=== PATIENT | male | born 1945 | race Caucasian/White ===

== ENCOUNTER 2017-05-02 02:38 | Inpatient (IN) | payer MEDICARE, OTHER ==
[2017-05-01 15:02] LABS: INR 0.98
[2017-05-02] VITALS (12 sets, daily range): BP systolic 122–150; BP diastolic 67–81
[~2017-05-02] VITALS: Ht 190.5 cm; Wt 122.5 kg
[~2017-05-02 02:38] MED LIST: ACE500 PO; ASC500 PO; CALC500T76 PO; CLO75 PO; DESV50TA9 PO; DULO60CA56 PO; ENO40I SQ; ESC10 PO; FEN145 PO; FISH OIL1 CAP PO; GLIM4TAB49 PO; IRON1CAP52 PO; LEVO137T21 PO; LEVO150T72 PO; LISI-357 PO; LOR5 PO; METF-1 PO; METF-415 PO; METO25TA91 PO; METO25TA93 PO; MINE1TAB6 PO; MOM PO; MULT-1335 PO; NIAC500C17 PO; OND8 PO; OXYC-373 PO; OXYC20TA PO; OXYC20TA86 PO; PER PO; PIOG30TA27 PO; PLAVIX; PRO25 PO; RIV10 PO; SAXA5TAB4 PO; SIMV-1 PO; SIMV-44 PO; TRAM100T22 PO; UBID30CA27 PO; ZOLP12.545 PO
[2017-05-02] MEDS ORDERED: THROMBIN TOP SOLN 5000INTLU VL ONE (06:34)
[2017-05-02] MEDS ORDERED: GELATIN SPONGE 12-7MM ONE (06:34)
[2017-05-02] MEDS ORDERED: DEXAMETHASONE SOD 4 MG/ML VIAL ONE (07:55)
[2017-05-02] MEDS ORDERED: ONDANSETRON 4 MG/2 ML VIAL ONE (07:55)
[2017-05-02] MEDS ORDERED: PROPOFOL EMUL(*) 10MG/ML 20 ML 20 ML ONE (07:55)
[2017-05-02] MEDS ORDERED: SUGAMMADEX SOD 200 MG/2 ML SDV ONE (07:55)
[2017-05-02] MEDS ORDERED: ROCURONIUM BROM 10 MG/ML 10 ML ONE (07:55)
[2017-05-02] MEDS ORDERED: fentaNYL CITR 250 MCG/5 ML AMP ONE (07:55)
[2017-05-02] MEDS ORDERED: LIDOCAINE MPF 1% 5 ML VIAL ONE (07:55)
[2017-05-02] MEDS ORDERED: METOPROLOL SUCC XL 25 MG TABCR PO ONE (08:05)
[2017-05-02] MEDS ORDERED: VANCOMYCIN IVPB ONE (09:00)
[2017-05-02] MEDS ORDERED: NS 0.9% IVPB ONE (09:00)
[2017-05-02] MEDS ORDERED: cloNIDine EPIDUR INJ 100MCG/ML 40 MCG, ROPIVACAINE 0.5% 20 ML VIAL 25 ML, EPINEPHrine H... INJ ONE (09:00)
[2017-05-02] MEDS ORDERED: MIDAZOLAM 2 MG/2 ML VIAL ONE (10:11)
[2017-05-02] MEDS ORDERED: NORMOSOL R SOLN(*) 1000 ML BAG 1,000 ML IV PRN (11:40)
[2017-05-02] MEDS ORDERED: MIDAZOLAM 2 MG/2 ML VIAL IVP PRN (11:40)
[2017-05-02] MEDS ORDERED: LIDOCAINE/SOD BICARB 8.4% SYR ID ONE (11:40)
[2017-05-02] MEDS ORDERED: FAMOTIDINE 20 MG TAB PO ONE (11:40)
[2017-05-02] MEDS ORDERED: PROMETHAZINE 25 MG/ML 1 ML AMP ONE (14:13)
[2017-05-02] MEDS ORDERED: PROMETHAZINE 25 MG/ML 1 ML AMP IVP PRN (14:20)
[2017-05-02] MEDS ORDERED: KCL/D5LR 20 MEQ/1000 ML PREMIX 1,000 ML IV PRN (14:20)
[2017-05-02] MEDS ORDERED: ACETAMINOPHEN 500 MG TAB PO PRN (14:20)
[2017-05-02] MEDS ORDERED: NALOXONE HCL 0.4 MG/ML VIAL IVP PRN (14:20)
[2017-05-02] MEDS ORDERED: MORPHINE SULFATE 30 MG PCA IV PRN (14:20)
[2017-05-02] MEDS ORDERED: ONDANSETRON 4 MG/2 ML VIAL IVP PRN (14:20)
[2017-05-02] MEDS ORDERED: FLUSH 10 ML SYR IVP PRN (14:20)
[2017-05-02] MEDS ORDERED: diphenhydrAMINE 25 MG CAP PO PRN (14:20)
[2017-05-02] MEDS ORDERED: MAGNESIUM CITRATE 300 ML BTL PO PRN (14:20)
[2017-05-02] MEDS ORDERED: fentaNYL CITR 100 MCG/2 ML AMP ONE (14:28)
--- NOTE | 2017-05-02 15:06 | OPERATIVE REPORT 1 ---
EVENT DATE: May 02, 2017 SURGEON: John Hernandez MD ANESTHESIOLOGIST: Malcolm Ortiz MD ANESTHESIA: General plus scalene block. PROJECT CREW WORKER: RYAN Toribio PREOPERATIVE DIAGNOSIS Right shoulder degenerative joint disease status post prior labral surgery many years ago. POSTOPERATIVE DIAGNOSES 1. Right shoulder degenerative joint disease status post prior labral surgery many years ago. 2. Posterior retroverted glenoid. 3. Significant osteomalacia. PROCEDURE PERFORMED Right shoulder arthroplasty. ESTIMATED BLOOD LOSS 300 INTRAVENOUS FLUIDS 1500 TOURNIQUET TIME None. SPECIMENS None. COMPLICATIONS None. IMPLANTS USED Global anatomic 16-degree body and stem with 52 x 21 eccentric head and a 48 [place] Peg glenoid. SUMMARY OF PROCEDURE The patient was brought into the operating room and placed on the OR table in the supine position. He was given a scalene block and then a general anesthetic. The right upper extremity was then prepped and draped in the usual sterile fashion with the patient in a semi-beach chair position. A deltopectoral approach was taken and deepened through skin and subcutaneous tissue. The deltopectoral interval was identified, and the cephalic vein was taken laterally along with the deltoid. There were some crossing branches superiorly that were cauterized with unipolar cautery. The conjoined tendon was identified. I then evaluated the subdeltoid plane, freed it up with a blunt retractor, and palpated the rotator cuff, finding it to be intact in a sufficient manner to allow anatomic shoulder arthroplasty instead of a reverse. We then incised the subscapularis, allowing for adequate soft tissue cuff to repair it later. The fluid was clear. We brought a posterior humeral retractor and moved the head forward. It was a little bit tight, but we were able to get adequate visualization. The osteophytes were removed. We then made our initial bone cut in line with the articular margin and then did another slightly deeper cut afterwards once we had a good view of where the rotator cuff insertion was. A protective cap was placed over this, and then we retracted it posteriorly. The capsule was stripped away from the anterior inferior glenoid neck as well as the humeral neck. His glenoid had a great deal of retroversion which made this case quite a bit more challenging. We tried initially to use the standard reamers, but they did not work, so I ended up having to use the cannulated reamer that was 0.75 in diameter with the moises missing, but this was then reamed down, and we used this to correct the version of the glenoid. Once I was in adequate position in this regard, we tested with a 48, and it fit well. We drilled the three peripheral holes, and these were all contained well. The central hole was redrilled because we had changed the shape of it. We then placed Gelfoam sponges with thrombin in all holes while mixing cement. The cement was injected using the injection gun into the three peripheral holes, having cleaned them with CarboJet after removing the thrombin-soaked Gelfoam sponges. We then impacted the [place] Peg glenoid into position, having placed bone into the flutes, and held it in position until full polymerization. Excess cement had been removed. At this point, the direction was redirected to the humeral head. We brought the humeral head forward, taking care not to put any pressure on the cemented glenoid. We started with the 6 reamer and progressed upward, but unfortunately , even at a 16, there was only slight cortical chatter. We then did the Brosteotome and the final trial. We had to split the head into quarters and use bone graft not only along the metaphysis, but also down the canal in order to get adequate fit and tension. Once this was done, we trialed several heads. Because we had changed the version and also reamed a moderate amount, I went with a fairly tall head at 52 x 21. This gave adequate support. We then put a little bit more bone graft in before implanting the final stem and head. Once again, we trialed. He was just a little bit lax posteriorly, and so I elected to have him scar in a little bit before we started range of motion by waiting two weeks with a sling and swathe. The wound was irrigated as it had been during the case. We then used #2 FiberWire for the subscapularis closure in anatomic position, followed by repeat irrigation, and then closure of the subcutaneous tissue with 3-0 Vicryl and 4-0 Monocryl for the skin with Steri- Strips applied. He had been given a local anesthetic in the deep and superficial tissues during closure. He was awakened and transferred to the recovery area in stable condition. MEGAN
[2017-05-02] MEDS ORDERED: DAPA10TA PO (15:54)
--- NOTE | 2017-05-02 15:57 | RADIOLOGY IMAGING REPORT ---
FACILITY: [facility] PATIENT NAME: Nini Lacey : 1945 MR: [id number] V: [id number] EXAM DATE: ORDERING PHYSICIAN: JUNIOR FONSECA TECHNOLOGIST: Location: [facility] [place] Patient: Nini Lacey : 1945 Visit/Account:[id number] Date of Sevice: 05/02/2017 Exam type: SHOULDER 1 VIEW RIGHT History: POST RIGHT SHOULDER ARTHROPLASTY Comparison: None. Findings: Or is a right shoulder arthroplasty that appears in good anatomic alignment on this single AP view IMPRESSION: 1. As above Report Dictated By: Margy Gar MD at 05/02/2017 3:43 PM Report E-Signed By: Margy Gar MD at 05/02/2017 3:53 PM WSN:[email or web address]
[2017-05-02] MEDS ORDERED: MAGNESIUM HYDROXIDE* 30ML UDCP PO PRN (17:30)
[2017-05-02] MEDS ORDERED: BISACODYL 10 MG SUPP PR PRN (17:30)
--- NOTE | 2017-05-02 17:42 | Hospitalist Progress Note ---
Subjective Progress Notes Subjective No cp/sob. 300cc of EBL. 1500cc of crystalloid, and dexamethasone given intra- operatively. Physical Exam Vital Signs Date Time Temp Pulse Resp B/P (MAP) Pulse Ox O2 Delivery O2 Flow Rate FiO2 05/02/17 16:30 98.3 102 16 131/70 (90) 91 Nasal Cannula 3.0 Intake and Output 05/03/17 07:00 Intake Total 2253.7 ml Output Total 700 ml Balance 1553.7 ml Intake Oral 360 ml IV Total 1893.7 ml Output Urine Total 400 ml Estimated Blood Loss 300 ml # Voids 3 General Appearance: Alert, Awake, No Acute Distress Cardiovascular: Regular Rate and Rhythm Respiratory: Clear to Auscultation Extremities: No Edema Assessment and Plan Problems: (1) Status post total shoulder arthroplasty Status: Acute Assessment & Plan: No CV/pulmonary issues. The patient is concerned about constipation with the narcotics, so will start MiraLax, Docusate and prn MOM/ Dulcolax. (2) CAD (coronary artery disease) Status: Chronic Assessment & Plan: Continue Zocor, Tricor and Toprol. Dr. Hernandez would like to restart the Plavix in 48 hours. (3) T2DM (type 2 diabetes mellitus) Status: Chronic Assessment & Plan: He is chronically on Metformin, Amaryl, and Farxiga. He didn't bring Farxiga, so will hold. He will restart Metformin on 05/04. He will be on SSI level 2 with AC HS glucose checks. Continue Amaryl. (4) HTN (hypertension) Status: Chronic Assessment & Plan: Continue Lisinopril and Toprol with parameters. (5) Hypothyroid Status: Chronic Assessment & Plan: Continue chronic levothyroxine. Problem Qualifiers (1) Status post total shoulder arthroplasty: Laterality: right Qualified Codes: Z96.611 - Presence of right artificial shoulder joint ADRIANA MARIE MD May 02, 2017 17:42
[2017-05-02] MEDS: POLYETHYLENE GLYCOL 17 GM PKT PO SCH (18:06)
[2017-05-02] MEDS: DOCUSATE SODIUM 100 MG CAP PO SCH (20:34)
[2017-05-02] MEDS: METOPROLOL SUCC XL 25 MG TABCR PO SCH (20:35)
[2017-05-02] MEDS: INSULIN HUM LISPRO 100 UN/ML 3 ML VIAL SUBQ PRN (20:55)
[2017-05-02] MEDS ORDERED: FENOFIBRATE,MICRON 145 MG TAB PO SCH (21:00)
[2017-05-02] MEDS ORDERED: SIMVASTATIN 40 MG TAB PO SCH (21:00)
[2017-05-03 02:50] VITALS: BP 111/75
[2017-05-03] MEDS ORDERED: LEVOTHYROXINE SOD 0.137 MG TAB PO SCH (06:00)
[2017-05-03 07:47] VITALS: BP 121/67
[2017-05-03] MEDS ORDERED: METF-410 PO (08:11)
[2017-05-03] MEDS: DOCUSATE SODIUM 100 MG CAP PO SCH (08:41)
[2017-05-03] MEDS: POLYETHYLENE GLYCOL 17 GM PKT PO SCH (08:42)
[2017-05-03] MEDS: METOPROLOL SUCC XL 25 MG TABCR PO SCH (08:42)
[2017-05-03] MEDS: INSULIN HUM LISPRO 100 UN/ML 3 ML VIAL SUBQ PRN (08:43)
[2017-05-03] MEDS ORDERED: GLIMEPIRIDE 2 MG TAB PO SCH (09:00)
[2017-05-03] MEDS ORDERED: LISINOPRIL 5 MG TAB PO SCH (09:00)
[2017-05-03] MEDS ORDERED: PATIENT'S OWN MED PO SCH (09:00)
[2017-05-03] MEDS ORDERED: metFORMIN HCL 500 MG TAB PO SCH (09:00)
[2017-05-03] MEDS ORDERED: PER PO (10:06)
--- NOTE | 2017-05-03 10:06 | Hospitalist Progress Note ---
Subjective Progress Notes Subjective The patient states his pain is controlled this am. He denies chest pain or shortness of breath. Physical Exam Vital Signs Date Time Temp Pulse Resp B/P (MAP) Pulse Ox O2 Delivery O2 Flow Rate FiO2 05/03/17 07:50 90 Nasal Cannula 3.0 05/03/17 07:47 97.9 84 16 121/67 (85) Intake and Output 05/04/17 07:00 Intake Total 500 ml Output Total 150 ml Balance 350 ml Intake Oral 500 ml Output Urine Total 150 ml # Voids 1 General Appearance: Alert, Awake Neuro: No Gross deficits Eyes: PERRLA Cardiovascular: Regular Rate and Rhythm Respiratory: Clear to Auscultation Psych: Appropriate Mood & Affect Assessment and Plan Problems: (1) Status post total shoulder arthroplasty Status: Acute Assessment & Plan: Hx of stents and bypass. No chest pain or shortness of breath. The patient is concerned about constipation with the narcotics, so will start MiraLax, Docusate and prn MOM/Dulcolax. (2) CAD (coronary artery disease) Status: Chronic Assessment & Plan: Continue Zocor, Tricor and Toprol. Dr. Hernandez would like to restart the Plavix in 48 hours. (3) T2DM (type 2 diabetes mellitus) Status: Chronic Assessment & Plan: He is chronically on Metformin, Amaryl, and Farxiga. He didn't bring Farxiga, so will hold. He will restart Metformin on 05/04. He will be on SSI level 2 with AC HS glucose checks. Continue Amaryl. (4) HTN (hypertension) Status: Chronic Assessment & Plan: Continue Lisinopril and Toprol with parameters. (5) Hypothyroid Status: Chronic Assessment & Plan: Continue chronic levothyroxine. Time Spent on Plan of Care: < 30 min Problem Qualifiers (1) Status post total shoulder arthroplasty: Laterality: right Qualified Codes: Z96.611 - Presence of right artificial shoulder joint KATHLEEN ROMERO MD May 03, 2017 10:06
--- NOTE | 2017-05-03 11:22 | Medical Nutrition Therapy ---
Nutrition Anthropometrics Height (Inches): 75.00 Height (Calculated Centimeters: 190.074145 Weight (Pounds): 270 Weight (Calculated Kilograms): 122.470 Bal Nutrition Score: Bal Nutrition Risk Score: Dietary Referral Nutrition Risk Factors: Nutrition Risk Comment: Physical Findings Physical Appearance: Obese BMI 30-39 Skin Appearance Skin Appearance: Edema Edema Location Modifier: Right Edema Location: Arm Type of Edema: Degree of Edema: Gastrointestinal Symptoms GI Symtoms: Tube Present: Bowel Sounds: Recent Bowel Pattern: Stool Characteristics: Nutritional Diagnosis Nutritional Risk Acuity 2: Blood Glucose > 300mg/dl Past Medical History: CAD,T2DM, HTN Hypothyroid Nutritional Acuity: 2-Moderate Nutrition Diagnosis: Inconsistent Carb. Intake Nutrition Etiology: Physiological Causes Nutrition Problem/Etiology/Sym: Inconsistant carb intake r/t regular diet post surgery AEB BG 367. Adjusted Energy Requirement Re: 2450 (20gm/kg) Protein Requirement: 98 (.8gm/kg) Fluid Requirement: 2450 (20ml/kg) Diet Type: Diet as Tolerated HAMZAH/REG Nutrition Intervention: Change diet Nutrition Monitoring & Eval Nutrition Goals: Eat 75-100% Meal RD Patient Assessment Time: [address] Assessment Type: RD Assessment Patient Nutrition Acuity: 2-Moderate Follow Up Date: May 08, 2017 Nutritional Comment: 3/3 Pt admited for shoulder surgery. Pt on regular diet and ate 100%. Pt has dx T2DM and BG is elevated up to 367. Recommend change to carb controlled diet. NIRALI LAMB May 03, 2017 11:22
== END 2017-05-03 11:45 | disposition home or self-care (01) | DRG 483 ==
LOC: OR 02:38 → MED 15:05
PROVIDERS: ADMIT Orthopaedic Surgery Hand Surgery; ATTEND Orthopaedic Surgery Hand Surgery
PROC: 0RRJ0JZ Replacement of Right Shoulder Joint with Synthetic Substitute, Open Approach (ICD-10-PCS; principal; 2017-05-02 10:28)
DX: M19.011 Primary osteoarthritis, right shoulder (principal); E11.9 Type 2 diabetes mellitus without complications; I25.10 Atherosclerotic heart disease of native coronary artery without angina pectoris; I10 Essential (primary) hypertension; G47.33 Obstructive sleep apnea (adult) (pediatric); M83.9 Adult osteomalacia, unspecified; E03.9 Hypothyroidism, unspecified; Z96.653 Presence of artificial knee joint, bilateral; I25.2 Old myocardial infarction; Z79.01 Long term (current) use of anticoagulants; Z99.81 Dependence on supplemental oxygen; Z95.1 Presence of aortocoronary bypass graft; Z79.84 Long term (current) use of oral hypoglycemic drugs
CPT/HCPCS: 36415; 36416; 82948; 85610; 86850; 86900; 86901; 97165; J0171; J0735; J1100; J2001; J2250; J2405; J2550; J2704; J2795; J3010; J3370; J7050